=== PATIENT | male | born 2005 | race Caucasian/White ===

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

== ENCOUNTER 2023-01-20 21:00 | Emergency (ER) | payer MEDICAID, SELFPAY ==
--- NOTE | ~2023-01-20 | XR_ITS ---
EXAMINATION: XR SHOULDER, RIGHT CLINICAL INFORMATION: Severe pain with abduction of the arm. COMPARISON: None available. TECHNIQUE: Three views of the right shoulder. FINDINGS: No fracture or malalignment. Bone mineralization is normal. Humeral head is appropriately situated at the glenoid. Acromioclavicular and glenohumeral joints appear well-preserved. Soft tissues are unremarkable. XR/XR shoulder RT min 2V IMPRESSION: Normal radiographs of the right shoulder.
[2023-01-20 21:29] VITALS: BP 143/80; PULSE 77; RESP 18; TEMP 37.1; O2SAT 99; BMI 28.2
[2023-01-21 00:38] VITALS: BP 133/77; PULSE 79; RESP 16; TEMP 36.8; O2SAT 97
--- NOTE | 2023-01-21 01:01 | ED_ITS ---
HPI - Extremity Problem General Chief complaint: Extremity Injury, Upper Stated complaint: shoulder pain, lifting weights Time Seen by Provider: 01/21/23 01:01 Source: patient Mode of arrival: ambulatory Limitations: no limitations History of Present Illness HPI Narrative: 88-year-old male presents with right shoulder pain. Patient was been dressing when he felt a pop and started have severe pain in the right shoulder. The pain is in the anterior aspect of the shoulder radiating down to his lateral deltoid. Is worse with movement. There is no numbness or tingling. There is no weakness. His symptoms are significantly worse by me particular movements. Patient denies any previous injury. There is no prior treatment prior to arrival. Related Data Previous Rx's Medication Instructions Recorded naproxen 500 mg tablet 500 mg PO BID #20 tabs 01/21/23 Allergies Allergy/AdvReac Type Severity Reaction Status Date / Time No Known Allergies Allergy Verified 01/20/23 21:29 Review of Systems Review of Systems: CONSTITUTIONAL: Denies weight loss, fever and chills. HEENT: Denies changes in vision and hearing. RESPIRATORY: Denies SOB and cough. CV: Denies palpitations no CP. GI: Denies abdominal pain, nausea, vomiting and diarrhea. : Denies dysuria and urinary frequency. MSK: + myalgia and joint pain. SKIN: Denies rash and pruritus. NEUROLOGICAL: Denies headache and syncope. PSYCHIATRIC: Denies recent changes in mood. Denies anxiety and depression. All other ROS are negative unless in HPI PMFSH Social History Social History Advance Directives: No Advance Directives Information Provided: Yes Physical Exam Vital Signs: Vital Signs: Last Vital Signs Temp 98.2 F 01/21/23 00:38 Pulse 79 01/21/23 00:38 Resp 16 01/21/23 00:38 BP 133/77 01/21/23 00:38 Pulse Ox 97 01/21/23 00:38 O2 Del Method Room Air 01/21/23 00:38 BMI result Body Mass Index 28.2 GEN: Well developed, no acute distress, alert, oriented HEENT: Normocephalic, atraumatic, normal external ears, nose appears normal Eyes: Normal to appearance Neck: Supple, no lymphadenopathy Respiratory: Talks in complete sentences, no respiratory distress Extremities: No clubbing cyanosis or edema , full range of motion of the right shoulder, able to externally and internally rotate although there was some mild weakness with external rotation. He is neurovascularly intact, tenderness over the bicipital groove on the right Neurologic: No focal neurologic deficits, cranial nerves 2-12 intact, gait normal Skin: No rash Course Course Course Narrative: is 1 in the morning. There is no evidence of fracture or dislocation on the x- ray. Most likely either a rotator cuff injury, sprain or tendinitis. In any event, will place patient on NSAIDs for 10-14 days. Will recommend that he follow up with Orthopedics at that time. Patient is where he may require an MRI for further evaluation. We also discussed limitation of strenuous activity using his right upper extremity. Medical Decision Making Medical Decision Making MDM Narrative: patient with right shoulder pain. Differential diagnosis including includes sprain, strain, tendinitis, fracture, dislocation, contusion. Plan to obtain an x-ray to rule out fracture or dislocation. Will provide patient with ibuprofen for anti-inflammatory pain relief. Will re-evaluate patient following imaging studies. Differential Diagnosis Differential Diagnoses: The differential diagnosis associated with the presentation includes ( See above) Independent Interpretation I performed an independent interpretation of an: Plain X-Ray ( shoulder no acute traumatic injury) Radiology Impression Discussion of test interpretation with radiology: I have reviewed the radiologist's reading. Radiologist Impression: XR/XR shoulder RT min 2V IMPRESSION: Normal radiographs of the right shoulder. Dictated By: n Signed By: <Electronically signed by n in OV> 01/20/232219 Discharge Plan Discharge Clinical Impression: Right shoulder strain Patient Disposition: Home, Self-Care Instructions: Muscle Strain (ED), Rotator Cuff Injury (ED) Prescriptions: New naproxen 500 mg tablet 500 mg PO BID Qty: 20 0RF Referrals: Mike Yost MD [Physician] - 10 days
[2023-01-21] MEDS: Ibuprofen 800 MG TABLET PO (01:14)
== END 2023-01-21 01:24 | disposition home or self-care (01) ==
PROVIDERS: Emergency Provider Emergency Medicine
DX: S46.911A Strain of unspecified muscle, fascia and tendon at shoulder and upper arm level, right arm, initial encounter (principal); X50.1XXA Overexertion from prolonged static or awkward postures, initial encounter; Y93.89 Activity, other specified; Y92.019 Unspecified place in single-family (private) house as the place of occurrence of the external cause; Y99.9 Unspecified external cause status
CPT/HCPCS: 73030; 99283; 99284